=== PATIENT | female | born 1975 | race Caucasian/White ===

== ENCOUNTER 2017-05-22 12:02 | Emergency (ER) | payer MEDICAID ==
[~2017-05-22] VITALS: Ht 157.5 cm; Wt 136.1 kg
[~2017-05-22 12:02] MED LIST: ADIPEX-P37.5 M2 PO; CIPRO 500MG TA500 MG PO; CLONAZEPAM0.5 M1 PO; ERYTHROMYC3.5 GM/TUB OP; HYDROCHLOROTHIA1 TA2 PO; HYDROCHLOROTHIA25 M1 PO; KEFLEX500 M1 PO; LOTENSIN40 MG PO; NEURONTIN 300M300 MG PO; SERTRALINE 50MG50 MG PO
--- OUTSIDE RECORDS SUMMARY | 2017-05-22 12:06 | External Medical Summary Rpt | CCD ---
Author Author MELVINA Address Unknown Phone [email or web address] Purpose Continuity of Care Document - 01-12-2017 through 2016
--- OUTSIDE RECORDS SUMMARY | 2017-05-22 12:06 | External Medical Summary Rpt | CCD ---
Author Author MELVINA Address Unknown Phone [email or web address] Purpose Continuity of Care Document - 01-12-2017 through 2016
--- OUTSIDE RECORDS SUMMARY | 2017-05-22 12:07 | External Medical Summary Rpt | CCD ---
Demographics Preferred Language Haitian Marital Status Unknown Zoroastrian Affiliation Unknown Race Unknown Ethnic Group Unknown Author Author , MELVINA HEIN Address Unknown Phone Immunization No patient found.
--- OUTSIDE RECORDS SUMMARY | 2017-05-22 12:07 | External Medical Summary Rpt ---
Author Author MELVINA Davenport, [employer] Organization [employer] Address Unknown Phone Unavailable Results CBC W Auto Differential panel in Blood Observa Value Referen Units Interpr Notes Date tion ce etation Range Basophils 0 - 0.2 K/MM3 Normal No Jan 12 informati 2016 [#/volume on in 11:26 AM ] in source Blood by data Automated count Basophils 0.1 - 2.0 % Normal No Jan 12 /100 informati 2016 leukocyte on in 11:26 AM s in source Blood by data Automated count Eosinophi 0.0 - 0.4 K/mm3 High No Jan 12 ls informati 2016 [#/volume on in 11:26 AM ] in source Blood by data Automated count Eosinophi 0.1 - % Normal No Jan 12 ls/100 12.0 informati 2016 leukocyte on in 11:26 AM s in source Blood by data Automated count Granulocy 1.8 - 7.8 K/mm3 Normal No Jan 12 boom informati 2016 [#/volume on in 11:26 AM ] in source Blood by data Automated count Granulocy 37.0 - % Normal No Jan 12 boom/100 80.0 informati 2016 leukocyte on in 11:26 AM s in source Blood by data Automated count Hematocri 37.0 - % High No Jan 12 t [Volume 47.0 informati 2016 on in 11:26 AM Fraction] source of Blood data Hemoglobi 12.2 - g/dL High No Jan 12 n 16.2 informati 2016 [Mass/vol on in 11:26 AM ume] in source Blood data Lymphocyt 0.7 - 4.5 K/mm3 Normal No Jan 12 es informati 2016 [#/volume on in 11:26 AM ] in source Unspecifi data ed specimen by Automated count Lymphocyt 10 - 50.0 % Normal No Jan 12 es informati 2016 [#/volume on in 11:26 AM ] in source Unspecifi data ed specimen by Automated count Erythrocy 27 - 31.2 pg Normal No Xavier 30 te mean informati 2017 corpuscul on in 11:26 AM ar source hemoglobi data n [Entitic mass] Erythrocy 31.8 - g/dl Low No Jan 12 te mean 35.4 2016 corpuscul on in 11:26 AM ar source hemoglobi data n concentra tion [Mass/vol ume] by Automated count Erythrocy 82.2 - fl Normal No Jan 12 te mean 97.8 2016 corpuscul on in 11:26 AM ar volume source [Entitic data volume] by Automated count Monocytes 0.1 - 1.0 K/mm3 Normal No Jan 12 inform2016 [#/volume on in 11:26 AM ] in source Blood by data Automated count Monocytes 1.7 - 9.3 % Normal No Jan 12 /100 2016 leukocyte on in 11:26 AM s in source Blood by data Automated count Platelet 7.4 - fl Normal No Jan 12 mean 10.4 2016 volume on in 11:26 AM [Entitic source volume] data in Blood by Automated count Platelets 142 - 424 K/mm3 Normal No Jan 12 inform2016 [#/volume on in 11:26 AM ] in source Blood data Erythrocy 4.2 - 5.4 M/mm3 High No Jan 12 boom inform2016 [#/volume on in 11:26 AM ] in source Amniotic data fluid Erythrocy 11.5 - % Normal No Jan 12 te 17.5 2016 distribut on in 11:26 AM ion width source [Entitic data volume] by Automated count Leukocyte 4.8 - K/MM3 Normal No Jan 12 s 10.8 informati 2016 [#/volume on in 11:26 AM ] in source Blood data
--- OUTSIDE RECORDS SUMMARY | 2017-05-22 12:07 | External Medical Summary Rpt | CCD ---
Author Author [employer] Organization [employer] Address Unknown Phone Unavailable Purpose Continuity of Care Document - through 2016
--- OUTSIDE RECORDS SUMMARY | 2017-05-22 12:07 | External Medical Summary Rpt | CCD ---
Demographics Preferred Language [place] Marital Status Unknown Lutheran Affiliation Unknown Race Unknown Ethnic Group Unknown Author Author , MELVINA HEIN Address Unknown Phone Immunization No patient found.
--- NOTE | 2017-05-22 12:54 | Urgent Treatment Center Report ---
See Addendum History of Present Issue Date/Time Seen by Provider 05/22/17 1229 Visit Reason Pt arrived:Walked Presenting Problem:SHORT OF AIR WITH COUGH AND HEAD/CHEST CONGESTION SINCE LAST NIGHT. PRODUCTIVE COUGH WITH CLEAR SPUTUM. Location if Accident: Onset of symptoms date/time:05/21/1712/30/1899 or onset unknown for: Have you (or family members/close friends) recently traveled outside the [place]? N If Yes, where/when: Have you had exposure to infectious disease within the past month? TB? Other? Specify: c/o productive cough, white sputum, chest congestion, SOA, wheezing, subjective fever all starting yesterday afternoon. [place] feverish all night. Borrowed father 's symbicort inhaler "and it opened me up". Hasn't taken or tried anything else. + tobacco abuse. Friend in the room also reporting one of patient's hand feel numb and tingly initially reporting x 3 days then reporting 4 days. Friend is requesting CT scan to check out patient's heart and rule out blockage. Pt refusing and wants only seen for cough and chest congestion as feels her hand is related to the way she slept "the other night". Plans to follow up with primary care if not improving. Discussed possible differentials and the willingness to evaluate further but patient "only want to get this cough and congestion dealt with today". Source patient, friend Exam Limitations no limitations ALLERGIES Coded Allergies: No Known Allergies (10/22/15) Home Medications Active Scripts Erythromycin (Erythromycin Ophth Oint 3.5GM Tube) 1 GM OP QID #1 OIN Prov: 02/24/16 Reported Medications LISINOPRIL/HYDROCHLOROTHIAZIDE (Lisinopril-Hctz 20-25 MG Tab) 1 TAB PO DAILY #30 History Medical History General CAD? No Angina: No [place]: No Hypertension? Yes Hyperlipidemia? No CHF? Yes DVT? No PE? No COPD? Yes Asthma? No Anemia? No GERD? No Gastric ulcers? No GI Bleed? No Hernia? No Thyroid Problems? No Hypothyroidism? No CVA? No Seizures? No Diabetes? No Renal Insuffiency? No UTI? No Stones? No BPH? No GB Disease: No Nephritic Syndrome? No Asplenia? No Hepatitis? No Sickle Cell Disease? No Arthritis? No Migraines? No Cataracts? No Glaucoma? No MRSA? No HIV? No TB? No Anxiety? No Depression? No Cancer? No Immunization HX Ped.Immunizations UTD Yes DT/Tetanus Unknown Surgical Hx Previous Surgery?Y Tonsils D & C [employer] Hx LMP 2 Weeks Ago Family History Family HX Diabetes No CAD No Hypertension No Hyperlipidemia No Cancer No TB No Social History Smoking Hx Smoker: Current Every Day Smoker Tobacco: Yes Type Cigarettes Packs/day 1 1/2 - 2 Packs Are you/the child exposed to second-hand smoke: No Alcohol Alcohol: No Review of Systems All Other Systems Reviewed and Negative Constitutional see HPI Eyes denies drainage ENT see HPI, ear pain ("not pain more popping really"), nose discharge, nose congestion, throat pain (last night only). denies: ear discharge, throat swelling. Respiratory see HPI Cardiovascular denies chest pain, denies palpitations Gastrointestinal denies no symptoms reported Musculoskeletal denies joint pain Skin denies rash Psychiatric/Neurological denies headache, denies weakness Physical Exam Vital Signs Vital Signs Date Time Temp Pulse Resp B/P Pulse O2 O2 Flow FiO2 Ox Delivery Rate 05/22 1218 98.2 82 20 132/77 93 General Appearance no apparent distress, obese Eye Exam - bilateral eye normal exam Ear, Nose, Throat normal ENT inspection Neck non-tender Respiratory Status Yes: trachea midline, chest symmetrical, non productive cough (worse with deep breathing). No: respiratory distress, use of accessory muscles, pain on inspiration, pain on expiration. Lung Sounds bilateral: rhonchi (faint,scttrd,imprvs w/cough), wheezing (end expiratory apices). Cardiovascular regular rate/rhythm, no peripheral edema, no murmur Neurologic alert, oriented x 3 Mental status normal mood/affect Skin normal color, warm/dry Lymphatic no adenopathy Medical Decision Making LABS/Meds/Orders Pt receiving controlled substance in ED? No Results/Orders Laboratory Tests 05/22/17 1226: Influenza Type A Ag NOT DETECTED, Influenza Type B Ag NOT DETECTED Current Medication Orders Sig/Viri Start time Last Medication Dose Route Stop Time Status Admin Albuterol/Ipratropium 3 ML ONCE ONE 05/22 1245 DC 05/22 INH 05/22 1246 1246 Methylprednisolone 125 MG ONCE ONE 05/22 1245 DC 05/22 Sodium Succinate IM 05/22 1246 1246 Methylprednisolone 0 .STK-MED ONE 05/22 1244 DC Sodium Succinate .ROUTE Orders Procedure Date/time Status CHEST(2 VIEWS-NOT PORTABLE) 05/22 1240 Active RT REQUEST DUONEB 05/22 1239 Active UTC FLU A,B 05/22 1226 Complete XRAY/CT/US XRAY/CT/US XRAY chest XR interpretation by reviewed by me (w/ Dr. Emanuel, ER ) Xray Results fullness right hilar region, questionable infiltrate Progress UTC Progress Notes Date 05/22/17 Time 1320 Comment pt feels symptoms have improved since neb/steroid. nonprod cough still worse with deep breaths and end expiratory wheezing left apex w/o scattered rhonchi now Departure Departure Time of Disposition 1323 Disposition DC Home or Self Care(routine) Clinical Impression Primary Impression: Acute bronchitis Qualifiers: Bronchitis organism: unspecified organism Qualified Code: J20.9 - Acute bronchitis, unspecified Secondary Impressions: Tobacco abuse Condition STABLE Referrals Sha MARTINEZ,Mark Dutta (Family) IMMEDIATELY for new or worsening symptoms OR no noticeable improvement over the next 48-72 hours. 911 for difficulty breathing. Patient Instructions DI for Acute Bronchitis, How to Quit Tobacco Products Additional Instructions *Follow up with primary care or clinic for final CXR result and to ensure no other treatment necessary. Return to ER/call 911 for difficulty breathing *Be sure to follow up with PCP regarding your hand that your friend mentioned today. * STOP SMOKING!!!! * start antibiotic today. Be sure to complete entire prescription even if feeling better. * Monitor Temp. Tylenol every 4 hours as needed no more then 5 times a day or 4000mg in 24 hours and/or ibuprofen every 6 hours as needed no more then 3200mg in 24 hours (as long as your primary care doctor has told you that it is ok to take both) for fever/aches/pain. ER if fever no less than 101 despite tylenol and ibuprofen * humidifier/vaporizer/hot steamy shower * prescribed Inhaler (not your dad's) every 4-6 hours as needed like we discussed. If unsure how to use it, ask pharmacist to demonstrate how. Should help open airways and improve cough, wheezing, shortness of breath. * Mucinex during the day for your cough and cough suppressant only at night. Be sure to drink lots of water. Insurance may not cover a prescription of mucinex. Might be cheaper to get 400mg tablets and take 2 tablets morning, midday and evening all with lots of water. * Promethazine DM cough syrup will cause drowsiness. Use it only at night. No driving, operating machinery or caring for small children after taking it. * Start steroid tomorrow since you received a shot in clinic. Helps with inflammation therefore, cough and wheezing. Follow directions on package. Rvwd side effects. Pt reports they have taken them before. Discharge Counseling Counseled pt/family regarding diagnosis, test results, medications/RX, home care, follow up needs Prescriptions Current Visit Scripts ALBUTEROL (Proventil Hfa Inhaler) 1-2 PUFF IH Q4-6H PRN PRN SOA, Wheezing #1 CAN Azithromycin (Zithromycin (Z-LUANA) 250MG Tab) 250 MG PO DAILY #6 TAB TAKE TWO (2) TABLETS ON DAY 1, THEN ONE (1) TABLET DAY #2 THRU #5 Prednisone (Prednisone 20MG) 20 MG PO BID #10 TAB PROMETHAZINE/DEXTROMETHORPHAN (Promethazine-Dm Syrup) 5-10 ML PO QHSP PRN cough #90 ML at 132
[2017-05-22] MEDS ORDERED: PROVENTIL0.09 MG/A1 IH (13:25)
[2017-05-22] MEDS ORDERED: PREDNISONE 20MG20 MG PO (13:25)
[2017-05-22] MEDS ORDERED: ZITHROMAX Z PA250 MG PO (13:25)
[2017-05-22] MEDS ORDERED: PROMETHAZINE D118 ML PO (13:25)
[2017-05-22 13:30] VITALS: BP 132/77
--- NOTE | 2017-05-22 13:50 | RADIOLOGY REPORT PS360 ---
CHEST(2 VIEWS-NOT PORTABLE) HISTORY: productive cough, SOA, wheezing, aches, chills, smoker ORDERING PHYSICIAN: HAMZAH HAYWARD APRN PATIENT AGE: 41 years COMPARISON: None available FINDINGS: Normal heart size. The jeremie are somewhat prominent and there is some increased density in the azygos area. This could be due to mild adenopathy. Slight increased density left lower lobe suspicious for atelectasis or infiltrate.. No effusions. No acute bony anomalies. IMPRESSION: 1. Left lower lobe infiltrate or atelectatic change with mild hilar adenopathy. Recommend follow up to confirm stability or resolution. 2. Otherwise negative
== END 2017-05-22 13:43 | disposition home or self-care (01) ==
LOC: UTC 12:02
DX: J20.9 Acute bronchitis, unspecified (principal); F17.210 Nicotine dependence, cigarettes, uncomplicated; I10 Essential (primary) hypertension